=== PATIENT | female | born 1985 | race Two or more races ===

== ENCOUNTER 2024-03-25 11:12 | Emergency (ER) | payer MEDICAID, SELFPAY ==
[2024-03-25 11:28] VITALS: BP 88/56; PULSE 78; RESP 19; TEMP 37; O2SAT 95; BMI 34.4
--- NOTE | 2024-03-25 11:49 | PD.EDRME ---
Rapid Medical Screening Exam RME Arrival date/time: 03/25/24 11:12 38-year-old female presents to the emergency department with complaints of vaginal bleeding worsening for 5 days. Low blood pressure in triage. I have greeted and performed a focused initial assessment of this patient. Initial appropriate labs ordered at this time. A comprehensive ED assessment and evaluation of the patient and analysis of all test and completion of medical decision making process will be conducted by additional ED provider. Chief Complaint: Vaginal Bleeding Time Seen by Provider: 03/25/24 11:37 Vital signs: Vital Signs Temperature 98.6 F 03/25/24 11:28 Pulse Rate 78 03/25/24 11:28 Respiratory Rate 19 03/25/24 11:28 Blood Pressure 88/56 L 03/25/24 11:28 Pulse Oximetry (%) 95 03/25/24 11:28 Oxygen Delivery Method Room Air 03/25/24 11:28
[2024-03-25] MEDS: SODIUM CHLORIDE 0.9% 1000 ML 1,000 ML 999 ML IV (12:07)
--- NOTE | 2024-03-25 12:18 | PD.EDVAGBL ---
ED OB Contraction Preg RMI/HPI General Chief complaint: Vaginal Bleeding Stated complaint: VAGINAL BLEEDING/PAIN X 22 DAYS; APPT MON Time Seen by Provider: 03/25/24 11:37 Arrival date/time: 03/25/24 11:12 This is a 38-year-old female that comes in with complaints of vaginal bleeding for the last 22 days. Patient states that she usually has irregular periods. She was on control for years and it controlled her from having constant bleeding. Patient states in July she stopped taking her control regularly. And then in January she noted she did not get a menstrual period. Patient was seen by her primary provider and an ultrasound was ordered at that time. Patient was told she was not . Patient states that she started having heavy menstrual cycle 22 days ago and for the last 5 days has been bleeding more. Today patient felt faint and was brought into the emergency room. Patient has a history of right ovary removed. Patient is a 3 para 2. Patient states that she the she lost she had a ectopic years ago. Limitations: no limitations RME / HPI RME / HPI Narrative: 03/25/24 11:12 38-year-old female presents to the emergency department with complaints of vaginal bleeding worsening for 5 days. Low blood pressure in triage. I have greeted and performed a focused initial assessment of this patient. Initial appropriate labs ordered at this time. A comprehensive ED assessment and evaluation of the patient and analysis of all test and completion of medical decision making process will be conducted by additional ED provider. Related Data Previous Rx's ?Medication ?Instructions ?Recorded ibuprofen 600 mg tablet 600 mg PO Q8H PRN pain #20 tabs 03/25/24 medroxyprogesterone 10 mg tablet 10 mg PO QDAY 10 days #10 tabs 03/25/24 (Provera) Allergies Allergy/AdvReac Type Severity Reaction Status Date / Time NKA* Allergy Uncoded 03/25/24 11:14 Review of Systems Review of Systems Systems Reviewed: All systems reviewed, normal except as documented Past Medical History Past Medical History Comments PMH COMMENT: denies ED Exam General Limitations: Present no limitations General appearance: Present alert and in no apparent distress Head Head exam: Present atraumatic Eye Eye exam: Present normal appearance, PERRL and EOMI ENT ENT exam: Present normal exam, normal oropharynx and mucous membranes moist Neck Neck exam: Present normal inspection, full ROM and trachea midline Chest Chest inspection: Present normal inspection and symmetric chest wall rise Respiratory Respiratory exam: Present normal lung sounds bilaterally Cardiovascular Cardiovascular exam: Present regular rate, normal rhythm and normal heart sounds Abdominal Exam Abdominal exam: Present soft and other (abdomen soft non tender ) Extremities Exam Extremities exam: Present normal inspection and full ROM Back Exam Back exam: Present normal inspection and full ROM Neurological Exam Neurological exam: Present alert and oriented X3 Psychiatric Psychiatric exam: Present normal affect and normal mood Skin Skin exam: Present warm, dry, intact and normal color Course Quality Measures none Orders Category Date Time Status Insert IV NOW Care 03/25/24 11:46 Completed US pelvic complete Stat Exams 03/25/24 12:52 Completed CBC Stat Lab 03/25/24 12:00 Completed Comprehensive Metabolic Panel Stat Lab 03/25/24 12:00 Completed HCG,Qualitative Serum Stat Lab 03/25/24 12:00 Completed Type and Screen Stat Lab 03/25/24 12:00 Completed Urinalysis Stat Lab 03/25/24 12:24 Completed Urine Culture Stat Lab 03/25/24 12:27 Completed Ketorolac Inj [Toradol Inj] Med 03/25/24 15:33 Discontinued 30 mg IVP X1 ONE Sodium Chloride 0.9% 1000 ml [Ns] 1,000 ml Med 03/25/24 11:46 Discontinued IV 999 mls/hr Vital Signs Vital signs: Vital Signs Temperature 98.6 F 03/25/24 11:28 Pulse Rate 78 03/25/24 11:28 Respiratory Rate 19 03/25/24 11:28 Blood Pressure 88/56 L 03/25/24 11:28 Pulse Oximetry (%) 95 03/25/24 11:28 Oxygen Delivery Method Room Air 03/25/24 11:28 Vaginal Bleeding MDM Narrative MDM Narrative: This is a 38-year-old female that comes in with complaints of vaginal bleeding for the last 22 days. Patient states that she usually has irregular periods. She was on control for years and it controlled her from having constant bleeding. Patient states in July she stopped taking her control regularly. And then in January she noted she did not get a menstrual period. Patient was seen by her primary provider and an ultrasound was ordered at that time. Patient was told she was not . Patient states that she started having heavy menstrual cycle 22 days ago and for the last 5 days has been bleeding more. Today patient felt faint and was brought into the emergency room. Patient has a history of right ovary removed. Patient is a 3 para 2. Patient states that she the she lost she had a ectopic years ago. Labs for the most part unremarkable. Hemoglobin stable. Patient's LFTs are slightly elevated. UA shows no infection. Patient given a copy of us report. Patient data External records reviewed:: [facility] previous records Clinical information provided by:: patient Social determinants that could affect healthcare access:: none Patient has the following chronic illnesses:: none How is presenting disease/condition affected by chronic disease/condition?: no chronic disease Evaluation data The following diagnostics were reviewed and interpreted by me:: lab results and radiology exam(s) Lab and/or radiology exams considered but not ordered:: none Interpretation Summary: see note Medications / Prescriptions Medications or Prescriptions considered but not ordered:: none Medication administrations:: Medication Administration History Discontinued Medications Sodium Chloride (Ns) 1,000 mls @ 999 mls/hr IV .Q1H1M ONE Stop: 03/25/24 12:46 Last Infusion: 03/25/24 12:46 Dose: Infused Documented By: Admin: 03/25/24 12:07 Dose: 999 mls/hr Documented By: AM Ketorolac Tromethamine (Ketorolac Inj 30 Mg/Ml Vial) 30 mg IVP X1 ONE Stop: 03/25/24 15:34 Last Admin: 03/25/24 16:36 Dose: 30 mg Documented By: AM see mar Consultations Consultation(s) initiated? (list below): No Diagnosis Vaginal Bleeding Differential Diagnosis: missed , threatened , dysfunctional uterine bleeding, ectopic without intrauterine and vaginal bleeding Most likely diagnosis given after review of the tests above:: dysfunctional uterine bleeding Admission Indicated Admission indicated?: not indicated Admission Request Was there a request for admission?: No Disposition Plan Disposition Plan: Discharge Discharge Attestation Discharge Attestation: The patient and all family members were given an opportunity to ask questions and understood the discharge instructions. Discharge instructions specifically effects, indications for sooner follow up or return to the emergency department, and the expected course of current diagnosis. Patient condition: Stable Discharge Plan Plan Patient Disposition: HOME (Self Care) Patient condition on transfer: Stable Prescriptions/Referrals Prescriptions/Med Rec: New medroxyprogesterone [Provera] 10 mg tablet 10 mg PO QDAY 10 Days Qty: 10 0RF ibuprofen 600 mg tablet 600 mg PO Q8H PRN (Reason: pain) Qty: 20 0RF Referrals: Nisha Lilly PA-C [Primary Care Provider] - In 1 week Problem List Clinical Impression: Dysmenorrhea, Pelvic mass Patient/Caregiver Discharge Instructions Discharge Activity: activity as tolerated Education Materials: ED MENSTRUAL CRAMPING Additional Instructions: Please take medication as prescribed. Only use ibuprofen if needed. Come back to the emergency room if symptoms change or worsen. Follow-up as scheduled appointment. Please give ultrasound report to primary provider. Print Language: Brazilian Stand Alone Forms: Suellen Award Info., Patient Portal Info Letter PA/MEGA Supervising Physician PA/MEGA Supervising Physician: nathalie
[2024-03-25 12:33] LABS: Basophils # (Auto) 0.1 Thou/mm3 (0.0-0.2); Basophils % (Auto) 1 % (0-2.5); Eosinophils # (Auto) 0.1 Thou/mm3 (0.0-0.5); Eosinophils % (Auto) 1 % (0-10); Hematocrit 34.9 % (36.0-46.0); Hemoglobin 12.4 g/dL (12.0-16.0); Immature Granulocytes % (Auto) 0 % (0-0); Immature Granulocytes Auto 0.02 Thou/mm3 (0.00-0.00); Lymphocytes # (Auto) 4.1 Thou/mm3 (1.0-4.8); Lymphocytes % (Auto) 36 % (10-50); Mean Corpuscular HGB Conc 35.5 g/dl (31.0-37.0); Mean Corpuscular Hemoglobin 29.7 pg (25.0-35.0); Mean Corpuscular Volume 84 fL (80-100); Monocytes # (Auto) 0.6 Thou/mm3 (0.0-0.8); Monocytes % (Auto) 5 % (0-12); Neutrophils # (Auto) 6.3 Thou/mm3 (1.8-7.7); Neutrophils % (Auto) 56 % (37-80); Nucleated Red Blood Cell % 0 /100 WBC (0); Platelet Count 327 Thou/mm3 (140-440); RDW Standard Deviation 37.2 fL (36.4-46.3); Red Blood Count 4.17 Miln/mm3 (4.00-5.20); White Blood Count 11.2 Thou/mm3 (3.6-11.0)
[2024-03-25 12:36] LABS: Collection Type, Urine Clean Catch
[2024-03-25 12:43] LABS: Bilirubin,Urine Negative (Negative); Blood,Urine Trace (Negative); Color,Urine Yellow (Lt Yel-Yel); Glucose, Urine Negative (Negative); Ketones,Urine Negative (Negative); Leukocyte Esterase,Urine Negative (Negative); Nitrite,Urine Negative (Negative); PH,Urine 6.5 (5.0-7.0); Protein,Urine 1+ (Neg - Trace); RBC,Urine 1 /hpf (0-3); Specific Gravity,Urine 1.024 (1.001-1.035); Squamous Epithelial Cell,Urine 1 /hpf (0-5); Urobilinogen,Urine Negative mg/dL (0.0-1.0); WBC,Urine 2 /hpf (0-5)
[2024-03-25 12:47] VITALS: BP 124/71; PULSE 81; RESP 17
[2024-03-25 12:50] LABS: Alanine Aminotransferase 52 U/L (10-49); Albumin, Serum 4.4 gm/dL (3.5-5.0); Albumin/Globulin Ratio 1.5 (1.2-2.2); Alkaline Phosphatase 77 U/L (46-116); Anion Gap 7 (7-16); Aspartate Amino Transferase 49 U/L (0-34); BUN/Creatinine Ratio 11 Ratio (12-20); Bilirubin,Total 0.4 mg/dL (0.3-1.2); Blood Urea Nitrogen 8 mg/dL (9-23); Calcium 9.4 mg/dL (8.3-10.6); Calcium (Corrected) 9.4 mg/dL (8.5-10.1); Carbon Dioxide 22.6 mMol/L (20.0-31.0); Chloride 106 mMol/L (98-107); Creatinine (Component) 0.7 mg/dL (0.6-1.3); Estimated Creatinine Clearance 130.9 mL/min (>60); Globulin 2.9 gm/dL (2.3-3.5); Glucose 136 mg/dL (74-106); Osmolality,Calculated 272 (275-295); Potassium 3.7 mMol/L (3.4-5.1); Sodium 136 mMol/L (136-145); Total Protein 7.3 gm/dL (5.7-8.2); eGFR > 60 See Note
--- NOTE | 2024-03-25 12:52 | XR_ITS ---
Examination: Pelvic ultrasound, transabdominal, complete Technique: Transabdominal ultrasound of the pelvis performed using grayscale imaging Date and time of exam: March 25, 2024 1314 hours INDICATIONS: Vaginal bleeding 22 days, post and amenorrhea 4 months FINDINGS: Uterus 9.9 x 6.2 x 7.4 cm Lower uterine segment cervix mass 3.5 x 2.3 x 2.6 cm Endometrial stripe 1.3 cm Right ovary absent Left ovary 2.7 x 1.7 x 2.1 cm arterial flow, 17 mm follicular cyst Suspicious for dilated left fallopian tube 11 mm Bladder diverticulum 28 mm IMPRESSION: Recommend pelvic sonography follow-up to confirm 3.5 x 2.3 x 2.6 cm cervical mass Suspicious for left hydrosalpinx
[2024-03-25 13:00] LABS: Clarity,Urine Hazy (Clear/Hazy)
[2024-03-25 13:03] LABS: HCG,Qualitative Serum Negative
[2024-03-25 16:16] VITALS: BP 116/72; PULSE 87; RESP 16; O2SAT 98
[2024-03-25] MEDS: KETOROLAC INJ 30 MG/ML VIAL IVP (16:36)
[2024-03-25 16:42] VITALS: PULSE 83; RESP 16; O2SAT 98
== END 2024-03-25 16:44 | disposition home or self-care (01) ==
PROVIDERS: Nurse Practitioner Primary Care; Emergency Provider Emergency Medicine; PCP Physician Assistant
DX: N94.6 Dysmenorrhea, unspecified (principal); R19.00 Intra-abdominal and pelvic swelling, mass and lump, unspecified site; Z90.721 Acquired absence of ovaries, unilateral
CPT/HCPCS: 36415; 76856; 80053; 81001; 84703; 85025; 86850; 86900; 86901; 87086; 96361; 96374; 99284; J1885; J7030

== ENCOUNTER 2024-04-04 15:23 | Emergency (ER) | payer MEDICAID, SELFPAY ==
[2024-04-04 15:48] VITALS: BP 138/90; PULSE 102; RESP 18; TEMP 37.3; O2SAT 97; BMI 34.3
--- NOTE | 2024-04-04 16:01 | XR_ITS ---
Examination: Pelvic ultrasound, transabdominal, complete Technique: Transabdominal ultrasound of the pelvis performed using grayscale imaging Date and time of exam: April 04, 2024 1800 hours INDICATIONS: Vaginal bleeding beginning 6 weeks ago, removal right ovary 9 years ago FINDINGS: Uterus 9.7 x 6.0 x 6.3 cm anteverted No uterine mass or intrauterine gestation Endometrial stripe 9 mm Right ovary absent Left ovary 2.2 x 2.1 x 3.3 cm arterial flow IMPRESSION: No uterine mass or intrauterine gestation
--- NOTE | 2024-04-04 16:02 | PD.EDRME ---
Rapid Medical Screening Exam [facility] Arrival date/time: 04/04/24 1 38-year-old female presents to the emergency department complaining of vaginal bleeding and left pelvic pain that is been ongoing for greater than 1 month. Chief Complaint: Vaginal Bleeding Time Seen by Provider: 04/04/24 15:26 Vital signs: Vital Signs Temperature 99.2 F 04/04/24 15:48 Pulse Rate 102 H 04/04/24 15:48 Respiratory Rate 18 04/04/24 15:48 Blood Pressure 138/90 H 04/04/24 15:48 Pulse Oximetry (%) 97 04/04/24 15:48 Oxygen Delivery Method Room Air 04/04/24 15:48 Vital signs reviewed by provider: Yes
[2024-04-04 16:58] LABS: Collection Type, Urine Clean Catch; Squamous Epithelial Cell,Urine 0 /hpf (0-5)
[2024-04-04 17:06] LABS: Bilirubin,Urine Negative (Negative); Blood,Urine 3+ (Negative); Glucose, Urine Negative (Negative); Ketones,Urine Trace (Negative); Leukocyte Esterase,Urine Positive (Negative); Nitrite,Urine Negative (Negative); Protein,Urine 2+ (Neg - Trace); RBC,Urine 5727 /hpf (0-3); Specific Gravity,Urine 1.019 (1.001-1.035); Urobilinogen,Urine Negative mg/dL (0.0-1.0); WBC,Urine 17 /hpf (0-5)
[2024-04-04 17:07] LABS: Clarity,Urine Turbid (Clear/Hazy); Color,Urine Lt-Red (Lt Yel-Yel); Culture Indicated,Urine Yes
[2024-04-04 17:24] LABS: Basophils % (Auto) 1 % (0-2.5); Eosinophils # (Auto) 0.2 Thou/mm3 (0.0-0.5); Eosinophils % (Auto) 2 % (0-10); Hematocrit 32.3 % (36.0-46.0); Hemoglobin 10.9 g/dL (12.0-16.0); Immature Granulocytes % (Auto) 0 % (0-0); Immature Granulocytes Auto 0.03 Thou/mm3 (0.00-0.00); Lymphocytes # (Auto) 2.4 Thou/mm3 (1.0-4.8); Lymphocytes % (Auto) 32 % (10-50); Mean Corpuscular HGB Conc 33.7 g/dl (31.0-37.0); Mean Corpuscular Hemoglobin 29.5 pg (25.0-35.0); Mean Corpuscular Volume 87 fL (80-100); Monocytes # (Auto) 0.5 Thou/mm3 (0.0-0.8); Monocytes % (Auto) 7 % (0-12); Neutrophils # (Auto) 4.2 Thou/mm3 (1.8-7.7); Neutrophils % (Auto) 58 % (37-80); Nucleated Red Blood Cell % 0 /100 WBC (0); Platelet Count 361 Thou/mm3 (140-440); RDW Standard Deviation 40.2 fL (36.4-46.3); White Blood Count 7.3 Thou/mm3 (3.6-11.0)
[2024-04-04 17:33] LABS: HCG,Qualitative Serum Negative
[2024-04-04 17:35] LABS: Partial Thromboplastin Time 24.9 Seconds (22.0-36.0); Prothrombin Time 11.4 Seconds (9.0-12.2)
[2024-04-04 17:40] LABS: Alanine Aminotransferase 94 U/L (10-49); Albumin, Serum 4.6 gm/dL (3.5-5.0); Albumin/Globulin Ratio 1.6 (1.2-2.2); Alkaline Phosphatase 83 U/L (46-116); Anion Gap 8 (7-16); Aspartate Amino Transferase 102 U/L (0-34); BUN/Creatinine Ratio 16 Ratio (12-20); Bilirubin,Total 0.4 mg/dL (0.3-1.2); Blood Urea Nitrogen 11 mg/dL (9-23); Carbon Dioxide 27.9 mMol/L (20.0-31.0); Chloride 102 mMol/L (98-107); Creatinine (Component) 0.7 mg/dL (0.6-1.3); Estimated Creatinine Clearance 126.4 mL/min (>60); Globulin 2.9 gm/dL (2.3-3.5); Glucose 116 mg/dL (74-106); Osmolality,Calculated 276 (275-295); Sodium 138 mMol/L (136-145); Total Protein 7.5 gm/dL (5.7-8.2); eGFR > 60 See Note
[2024-04-04] MEDS: MEDRoxyPROGESTERone ACET 2.5 MG TABLET 10 MG PO (20:13)
--- NOTE | 2024-04-08 16:15 | PD.EDVAGBL ---
ED OB Contraction Preg RMI/HPI General Chief complaint: Vaginal Bleeding Stated complaint: vaginal bleeding > 1 month and 1 week Time Seen by Provider: 04/04/24 15:26 Source: patient Arrival date/time: 04/04/24 15:23 38-year-old female presents to the emergency department complaining of vaginal bleeding and left pelvic pain that is been ongoing for greater than 1 month. Mode of arrival: ambulatory Limitations: no limitations RME / HPI RME / HPI Narrative: 04/04/24 1 38-year-old female presents to the emergency department complaining of vaginal bleeding and left pelvic pain that is been ongoing for greater than 1 month. Related Data Previous Rx's ?Medication ?Instructions ?Recorded ibuprofen 600 mg tablet 600 mg PO Q8H PRN pain #20 tabs 03/25/24 medroxyprogesterone 10 mg tablet 10 mg PO BID 2 weeks #28 tabs 04/04/24 (Provera) Allergies Allergy/AdvReac Type Severity Reaction Status Date / Time NKA* Allergy Uncoded 03/25/24 11:14 Review of Systems Review of Systems Systems Reviewed: All systems reviewed, normal except as documented Constitutional Constitutional: Reports system reviewed and no additional complaints, except as documented, Denies body ache(s), Denies chills and Denies fever(s) Eyes Eyes: Reports system reviewed and no additional complaints, except as documented and Denies change in vision ENT Ears, Nose, Mouth, and Throat: Reports system reviewed and no additional complaints, except as documented, Denies disequilibrium, Denies dizziness, Denies sore throat and Denies vertigo Cardiovascular Cardiovascular: Reports system reviewed and no additional complaints, except as documented, Denies chest pain and Denies dyspnea Respiratory Respiratory: Reports system reviewed and no additional complaints, except as documented, Denies chest congestion, Denies cough and Denies dyspnea Gastrointestinal Gastrointestinal: Reports system reviewed and no additional complaints, except as documented, Denies abdominal pain, Denies nausea and Denies vomiting Genitourinary Genitourinary: Reports abnormal menses and Reports abnormal vaginal bleeding Musculoskeletal Musculoskeletal: Reports system reviewed and no additional complaints, except as documented, Denies abnormal gait and Denies arthralgias Integumentary/Breasts Skin/Breast: Reports system reviewed and no additional complaints, except as documented, Denies erythema, Denies rash and Denies wounds Neurologic Neurologic: Reports system reviewed and no additional complaints, except as documented, Denies abnormal gait, Denies disequilibrium, Denies dizziness and Denies vertigo Past Medical History Past Medical History NEUROLOGIC: Negative Neurological Disorders CARDIAC: Positive Hypertension and Hypotension; Negative Congestive Heart Failure RESPIRATORY: Negative Chronic Obstructive Pulmonary Disease (COPD) GASTROINTESTINAL: Negative Gastrointestinal Disorders (pt thinks she may have colitis) GENITOURINARY: Negative Genitourinary Disorders or Renal Disease REPRODUCTIVE: Positive Previous Pregnancies (3 pregnancies and 2 live biths. x1 ectopic) MUSCULOSKELETAL: Negative Musculoskeletal Disorders ENDOCRINE: Negative Endocrine Disorders, Diabetes Mellitus Type 1 or Diabetes Mellitus Type 2 (pre diabetic) HEMATOLOGIC: Negative Blood Disorders Surgical History SURGICAL: Negative Cardiac Surgery, Endocrine Surgery or Ear Surgery Social History SMOKING STATUS: Never smoker ED Exam General Limitations: Present no limitations General appearance: Present alert and in no apparent distress Head Head exam: Present atraumatic Eye Eye exam: Present normal appearance, PERRL and EOMI ENT ENT exam: Present normal exam, normal oropharynx and mucous membranes moist Neck Neck exam: Present normal inspection, full ROM and trachea midline Chest Chest inspection: Present normal inspection and symmetric chest wall rise Respiratory Respiratory exam: Present normal lung sounds bilaterally Cardiovascular Cardiovascular exam: Present regular rate, normal rhythm and normal heart sounds Abdominal Exam Abdominal exam: Present soft and normal bowel sounds Extremities Exam Extremities exam: Present normal inspection and full ROM Back Exam Back exam: Present normal inspection and full ROM Neurological Exam Neurological exam: Present alert, oriented X3 and CN II-XII intact Psychiatric Psychiatric exam: Present normal affect and normal mood Skin Skin exam: Present warm, dry, intact and normal color Course Quality Measures none Orders Category Date Time Status US pelvic complete Stat Exams 04/04/24 16:01 Completed CBC Stat Lab 04/04/24 16:45 Completed CMP [Comprehensive Metabolic Panel] Stat Lab 04/04/24 16:45 Completed HCG,Qualitative Serum Stat Lab 04/04/24 16:45 Completed PT [Prothrombin Time with INR] Stat Lab 04/04/24 16:45 Completed PTT [Partial Thromboplastin Time] Stat Lab 04/04/24 16:45 Completed Urinalysis, C/S if Indicated Stat Lab 04/04/24 16:49 Completed Urine Culture Stat Lab 04/04/24 16:49 Completed MEDRoxyPROGESTERone ACET [Provera] Med 04/04/24 19:43 Discontinued 10 mg PO X1 ONE Vital Signs Vital signs: Vital Signs Temperature 99.2 F 04/04/24 15:48 Pulse Rate 102 H 04/04/24 15:48 Respiratory Rate 18 04/04/24 15:48 Blood Pressure 138/90 H 04/04/24 15:48 Pulse Oximetry (%) 97 04/04/24 15:48 Oxygen Delivery Method Room Air 04/04/24 15:48 97% RA WNL. Vaginal Bleeding MDM Narrative MDM Narrative: 38-year-old female presents to the emergency department complaining of vaginal bleeding and left pelvic pain that is been ongoing for greater than 1 month. Patient appears non toxic and hemodynamically stable. CBC no leukocytosis, Hgb 10.9 trending down. CMP and U/A unremarkable. US pelvis no intrauterine mass or intrauterine gestation. Dr. Olea consulted recommended repeat Medroxyprogesterone treatment but increase to 10mg BID and have close f/u in [facility] office on . Patient given dose and adress of OBGYN Dr. Olea and instructed to see him in hes office and return to ER for any worsening symptoms. Patient data External records reviewed:: [facility] previous records Clinical information provided by:: patient Social determinants that could affect healthcare access:: none Patient has the following chronic illnesses:: see chart How is presenting disease/condition affected by chronic disease/condition?: uneffected by Evaluation data The following diagnostics were reviewed and interpreted by me:: lab results and radiology exam(s) Lab and/or radiology exams considered but not ordered:: ordered Interpretation Summary: interpreted by me Medications / Prescriptions Medications or Prescriptions considered but not ordered:: ordered Medication administrations:: Medication Administration History Discontinued Medications Medroxyprogesterone Acetate (Medroxyprogesterone Acet 2.5 Mg Tablet) 10 mg PO X1 ONE Stop: 04/04/24 19:44 Last Admin: 04/04/24 20:13 Dose: 10 mg Documented By: given Consultations Consultation(s) initiated? (list below): Yes Consultation #1 (Physician, Specialty, Details): dr. olea Diagnosis Vaginal Bleeding Differential Diagnosis: dysfunctional uterine bleeding, menometrorrhagia and vaginal bleeding Most likely diagnosis given after review of the tests above:: vaginal bleeding Admission Indicated Admission indicated?: not indicated Admission Request Was there a request for admission?: No Disposition Plan Disposition Plan: Discharge Discharge Attestation Discharge Attestation: The patient and all family members were given an opportunity to ask questions and understood the discharge instructions. Discharge instructions specifically effects, indications for sooner follow up or return to the emergency department, and the expected course of current diagnosis. Patient condition: Stable Discharge Plan Plan Patient Disposition: HOME (Self Care) Disposition Comment: Stable Prescriptions/Referrals Prescriptions/Med Rec: New medroxyprogesterone [Provera] 10 mg tablet 10 mg PO BID 14 Days Qty: 28 0RF No Action ibuprofen 600 mg tablet 600 mg PO Q8H PRN (Reason: pain) Qty: 20 0RF Referrals: Nisha Lilly PA-C [Primary Care Provider] - In 1 week Bijan Olea MD [Physician] - 04/06/24 9:00 am Problem List Clinical Impression: Abnormal vaginal bleeding Patient/Caregiver Discharge Instructions Discharge Activity: activity as tolerated Education Materials: Understanding Uterine Bleeding Additional Instructions: Take medication as prescribed. Follow-up with GENERAL ACCOUNTANT Dr. Olea on Thursday in his office at [facility] on [address] Address is provided above. Return to the emergency department for any worsening symptoms or as needed. Print Language: Polish Stand Alone Forms: Suellen Award Info., Patient Portal Info Letter PA/MEGA Supervising Physician MANDY/MEGA Supervising Physician: Dr. Diggs
== END 2024-04-04 20:15 | disposition home or self-care (01) ==
PROVIDERS: Emergency Provider Emergency Medicine; PCP Physician Assistant
DX: N93.9 Abnormal uterine and vaginal bleeding, unspecified (principal)
CPT/HCPCS: 36415; 76856; 80053; 81001; 84703; 85025; 85610; 85730; 87086; 99284; A9270

== ENCOUNTER → 2024-05-18 | Outpatient (CLI) | payer MEDICAID, SELFPAY ==
[2024-05-18 14:56] LABS: HCG Qualitative,Urine Negative
--- NOTE | 2024-05-18 16:00 | XR_ITS ---
Examination: MRI pelvis with intravenous contrast. MRI pelvis without intravenous contrast. Date and time of exam: May 18, 2024 1740 hrs. Indications: History vaginal bleeding beginning one month ago, 3.5 x 2.3 x 2.6 cm cervical mass on pelvic sonogram March 25, 2024 Technique: Multiple axial, sagittal and coronal sections of the pelvis obtained. Transverse images, TR 6020, TE 107. T1 weighted transverse images, TR 582, TE 9.5. T2-weighted sagittal images, TR 4000, TE 105. T2-weighted sagittal images, TR 4000, TE 5. Coronal images, TR 4210, TE 107. Axial and coronal images are obtained post 19 cc intravenous injection, gadolinium. Findings: Retroverted uterus, 10.2 x 5.9 x 4.8 cm No enhancing uterine or cervical mass is noted on this study Endometrial stripe is not thickened Left ovary 2.2 x 2.8 cm, 20 mm left ovarian cyst No free fluid in the pelvis No pelvic lymphadenopathy Impression: No enhancing cervical mass is depicted on this study Recommend this patient return for repeat transvaginal pelvic sonography with the radiologist in attendance
== END | disposition home or self-care (01) ==
PROVIDERS: Referring Provider Physician Assistant; Visit Provider Physician Assistant
DX: R19.00 Intra-abdominal and pelvic swelling, mass and lump, unspecified site (principal); Z32.00 Encounter for pregnancy test, result unknown
CPT/HCPCS: 72197; 81025; A9579

== ENCOUNTER 2024-09-20 09:43 | Emergency (ER) | payer MEDICAID, SELFPAY ==
[2024-09-20 09:44] VITALS: BMI 32.3
[2024-09-20 10:00] VITALS: BP 161/80; PULSE 77; RESP 18; TEMP 36.6; O2SAT 96
--- NOTE | 2024-09-20 10:17 | EDRME_ITS ---
Rapid Medical Screening Exam RME Arrival date/time: 09/20/24 09:43 This is a 38-year-old female that comes in with complaints of nausea, vomiting, and abdominal pain that started this morning. patient denies past medical history. I have greeted and performed a focused initial assessment of this patient. Init ial appropriate labs ordered at this time. A comprehensive ED assessment and evaluation of the patient and analysis of all test and completion of medical decision making process will be conducted by additional ED provider. Chief Complaint: Abdominal Pain Time Seen by Provider: 09/20/24 09:51 Vital signs: Vital Signs Temperature 97.9 F 09/20/24 10:00 Pulse Rate 77 09/20/24 10:00 Respiratory Rate 18 09/20/24 10:00 Blood Pressure 161/80 H 09/20/24 10:00 Pulse Oximetry (%) 96 09/20/24 10:00 Oxygen Delivery Method Room Air 09/20/24 10:00
[2024-09-20] MEDS: ONDANSETRON ODT 4 MG TABRAP PO (10:26)
[2024-09-20 10:38] LABS: Basophils % (Auto) 0 % (0-2.5); Eosinophils % (Auto) 0 % (0-10); Hemoglobin 13.3 g/dL (12.0-16.0); Immature Granulocytes % (Auto) 0 % (0-0); Immature Granulocytes Auto 0.04 Thou/mm3 (0.00-0.00); Lymphocytes # (Auto) 1.6 Thou/mm3 (1.0-4.8); Lymphocytes % (Auto) 14 % (10-50); Mean Corpuscular HGB Conc 34.1 g/dl (31.0-37.0); Mean Corpuscular Hemoglobin 26.9 pg (25.0-35.0); Mean Corpuscular Volume 79 fL (80-100); Monocytes # (Auto) 0.3 Thou/mm3 (0.0-0.8); Monocytes % (Auto) 2 % (0-12); Neutrophils # (Auto) 9.4 Thou/mm3 (1.8-7.7); Neutrophils % (Auto) 83 % (37-80); Nucleated Red Blood Cell % 0 /100 WBC (0); Platelet Count 350 Thou/mm3 (140-440); Red Blood Count 4.94 Miln/mm3 (4.00-5.20); White Blood Count 11.4 Thou/mm3 (3.6-11.0)
[2024-09-20 11:11] LABS: Collection Type, Urine Voided
[2024-09-20 11:15] LABS: Alanine Aminotransferase 31 U/L (10-49); Albumin, Serum 4.6 gm/dL (3.5-5.0); Albumin/Globulin Ratio 1.5 (1.2-2.2); Alkaline Phosphatase 84 U/L (46-116); Anion Gap 11 (7-16); Aspartate Amino Transferase 34 U/L (0-34); BUN/Creatinine Ratio 10 Ratio (12-20); Bilirubin,Total 0.5 mg/dL (0.3-1.2); Blood Urea Nitrogen 7 mg/dL (9-23); Calcium 8.9 mg/dL (8.3-10.6); Calcium (Corrected) 8.9 mg/dL (8.5-10.1); Carbon Dioxide 21.7 mMol/L (20.0-31.0); Chloride 104 mMol/L (98-107); Creatinine (Component) 0.7 mg/dL (0.6-1.3); Estimated Creatinine Clearance 122.4 mL/min (>60); Glucose 188 mg/dL (74-106); Lipase 32 U/L (12-53); Osmolality,Calculated 276 (275-295); Potassium 3.6 mMol/L (3.4-5.1); Sodium 137 mMol/L (136-145); Total Protein 7.6 gm/dL (5.7-8.2); eGFR > 60 See Note
[2024-09-20 11:17] LABS: HCG Qualitative,Urine Negative
[2024-09-20 11:23] LABS: Bacteria,Urine Rare; Bilirubin,Urine Negative (Negative); Blood,Urine 1+ (Negative); Clarity,Urine Clear (Clear/Hazy); Color,Urine Lt-Yellow (Lt Yel-Yel); Culture Indicated,Urine Not Indicated; Glucose, Urine 1+ (Negative); Ketones,Urine 2+ (Negative); Leukocyte Esterase,Urine Negative (Negative); Nitrite,Urine Negative (Negative); PH,Urine 6.5 (5.0-7.0); Protein,Urine Negative (Neg - Trace); RBC,Urine 4 /hpf (0-3); Specific Gravity,Urine 1.021 (1.001-1.035); Squamous Epithelial Cell,Urine 2 /hpf (0-5); Urobilinogen,Urine Negative mg/dL (0.0-1.0); WBC,Urine 1 /hpf (0-5)
[2024-09-20] MEDS: KETOROLAC INJ 60 MG/2 ML VIAL IM (14:13)
[2024-09-20 15:06] VITALS: BP 157/96; PULSE 88; RESP 20; TEMP 36.8; O2SAT 97
--- NOTE | 2024-09-20 15:23 | EDNOTE_ITS ---
<Statement entered by Nargis Javier MD - 09/21/24 09:01> As co-signing physician, I was present and available for consult prn. I concur with the plan and care as documented by the midlevel provider. ED General RME/HPI General Chief complaint: Abdominal Pain Stated complaint: LLQ ABD PAIN THIS MORNING/VOMITING Time Seen by Provider: 09/20/24 09:51 Arrival date/time: 09/20/24 09:43 CC: Nausea vomiting low abdominal pain onset abruptly at 530 this morning. No prior history of similar events no family members are ill with similar symptoms denies fever chest pain shortness of breath. Mild back pain Toradol injection given in the waiting room gave her some relief but not significant. Currently the patient is smiling has had no nausea or vomiting for the past 2 hours. RME / HPI RME / HPI narrative: 09/20/24 09:43 This is a 38-year-old female that comes in with complaints of nausea, vomiting, and abdominal pain that started this morning. patient denies past medical history. I have greeted and performed a focused initial assessment of this patient. Initial appropriate labs ordered at this time. A comprehensive ED assessment and evaluation of the patient and analysis of all test and completion of medical decision making process will be conducted by additional ED provider. Related Data Previous Rx's ?Medication ?Instructions ?Recorded ibuprofen 600 mg tablet 600 mg PO Q8H PRN pain #20 t abs 03/25/24 meloxicam 7.5 mg tablet 7.5 mg PO QDAY #10 tabs 09/08 08/02 ondansetron 4 mg disintegrating 4 mg PO Q8H #10 tabs 0 09/20/24 tablet Allergies Allergy/AdvReac Type Severity Reaction Status Date / Time NKA* Allergy Uncoded 03/25/24 11:14 Review of Systems Review of Systems Narrative Review of Systems: GEN: No fever, no chills, no weight loss EYES: No discharge, no visual changes, no pain HEENT: No ear pain, no congestion, no sore throat PULM: No shortness of breath, no cough, no congestion CV: No chest pain, no dyspnea on exertion, no palpitations GI: + nausea, + vomiting, no diarrhea, + pain, no constipation : No frequency, no urgency, no dysuria MUSC/SKEL: No joint pain, no back pain SKIN: No rash PSYCH: No hallucinations, no depression HEME/LYMPH: No easy bleeding or bruising tendencies NEURO: No weakness, no headache Past Medical History Past Medical History NEUROLOGIC: Negative Neurological Disorders CARDIAC: Positive Hypertension and Hypotension; Negative Congestive Heart Failure RESPIRATORY: Negative Chronic Obstructive Pulmonary Disease (COPD) GASTROINTESTINAL: Negative Gastrointestinal Disorders (pt thinks she may have colitis) GENITOURINARY: Negative Genitourinary Disorders or Renal Disease REPRODUCTIVE: Positive Previous Pregnancies (3 pregnancies and 2 live biths. x1 ectopic) MUSCULOSKELETAL: Negative Musculoskeletal Disorders ENDOCRINE: Negative Endocrine Disorders, Diabetes Mellitus Type 1 or Diabetes Mellitus Type 2 (pre diabetic) HEMATOLOGIC: Negative Blood Disorders Surgical History SURGICAL: Negative Cardiac Surgery, Endocrine Surgery or Ear Surgery Social History SMOKING STATUS: Never smoker ED Exam Narrative Physical exam: [General: Obese not in any acute distress Head normocephalic HEENT: Within acceptable limits Neck is supple nontender Chest equal chest rise nontender to palpation Respiratory: Clear to auscultation no wheezes crackles or rubs CV: Rate rhythm is regular no murmurs rubs or clicks Abdomen is distended secondary to body habitus soft mild pannus tenderness, no reflexive guarding no rebound tenderness. no masses positive bowel sounds all 4 quadrants Back: No CVA tenderness no spinous process tenderness from cervical spine thoracic and lumbar spine Skin: Intact no petechiae rash induration ulceration or crepitus Extremities: Moving all extremity against resistance cap refill less than 2 seconds neurosensory intact Neuro: Awake alert oriented x3 Glascow coma 15 no focal deficits] Course Quality Measures none Orders Category Date Time Status Bedside COVID-19 Antigen Test NOW Care 09/20/24 11:53 Completed Bedside Influenza A&B Antigen Test NOW Care 09/20/24 11:53 Completed CBC Stat Lab 09/20/24 10:27 Completed Comprehensive Metabolic Panel Stat Lab 09/20/24 10:27 Completed HCG Qualitative,Urine Stat Lab 09/20/24 10:56 Completed Lipase Stat Lab 09/20/24 10:27 Completed Urinalysis, C/S if Indicated Stat Lab 09/20/24 10:56 Completed Ketorolac Inj [Toradol Inj] Med 09/20/24 13:47 Discontinued 60 mg IM X1 ONE Ondansetron Odt [Zofran Odt] Med 09/20/24 10:16 Discontinued 4 mg PO X1 ONE Vital Signs Vital signs: Vital Signs Temperature 97.9 F 09/20/24 10:00 Pulse Rate 77 09/20/24 10:00 Respiratory Rate 18 09/20/24 10:00 Blood Pressure 161/80 H 09/20/24 10:00 Pulse Oximetry (%) 96 09/20/24 10:00 Oxygen Delivery Method Room Air 09/20/24 10:00 Discharge Plan Plan Patient Disposition: HOME (Self Care) Patient condition on transfer: Stable Prescriptions/Referrals Prescriptions/Med Rec: New ondansetron 4 mg tablet,disintegrating 4 mg PO Q8H Qty: 10 0RF meloxicam 7.5 mg tablet 7.5 mg PO QDAY Qty: 10 0RF No Action ibuprofen 600 mg tablet 600 mg PO Q8H PRN (Reason: pain) Qty: 20 0RF Referrals: No Primary/Family,Physician [Primary Care Provider] - In 1 week Problem List Clinical Impression: Abdominal pain, Nausea & vomiting Patient/Caregiver Discharge Instructions Education Materials: Abdominal Pain, ED Vomiting and Diarrhea ... Print Language: [place] Stand Alone Forms: [facility]ellen Award Info., Patient Portal Info Letter MDM Clinical Information Provided by: none Medical Records reviewed None Labs/Rad/Tests considered, not ordered None Labs Labs: Interpreted by me Lab(s) Interpretation(s): CBC shows leukocytosis of 11.4 no anemia thrombocytopenia CMP shows no significant electrolyte imbalances other than a glucose of 188 no transaminitis or T. bili elevation Urine there is 1+ glucose 4+ RBCs. Medication Administration(s) Medication Administration History Discontinued Medications Ketorolac Tromethamine (Ketorolac Inj 60 Mg/2 Ml Vial) 60 mg IM X1 ONE Stop: 09/20/24 13:48 Last Admin: 09/20/24 14:13 Dose: 60 mg Documented By: SAVNANA Ondansetron HCl (Ondansetron Odt 4 Mg Tabrap) 4 mg PO X1 ONE; Protocol Stop: 09/20/24 10:17 Last Admin: 09/20/24 10:26 Dose: 4 mg Documented By: QUINTEN
== END 2024-09-20 15:57 | disposition home or self-care (01) ==
PROVIDERS: Nurse Practitioner Family; Emergency Provider Emergency Medicine
DX: R10.32 Left lower quadrant pain (principal); R11.2 Nausea with vomiting, unspecified
CPT/HCPCS: 36415; 80053; 81001; 81025; 83690; 85025; 87400; 87811; 96372; 99283; J1885; Q0162

== ENCOUNTER → 2025-05-01 | Outpatient (CLI) | payer MEDICAID, SELFPAY ==
--- NOTE | 2025-05-01 14:15 | XR_ITS ---
Examination: Pelvic ultrasound, transabdominal, complete Technique: Transabdominal ultrasound of the pelvis performed using grayscale imaging Date and time of exam: May 04, 2025, 1800 hours, comparison April 04, 2024 INDICATIONS: Irregular heavy menses and pelvic pain beginning 10 years ago FINDINGS: Uterus 8.5 cm endometrial stripe 1.0 cm No uterine mass or intrauterine gestation Absent right ovary Left ovary 5.3 cm arterial flow, 4.3 x 2.4 x 2.8 cm simple cyst Solid left adnexal vascular mass 2.2 x 1.6 x 1.7 cm IMPRESSION: Solid left adnexal mass with vascularity 2.2 x 1.6 x 1.7 cm, differential including ovarian tumor Recommend MRI pelvis follow-up pre and postcontrast
== END | disposition home or self-care (01) ==
LOC: CDIM 14:00
PROVIDERS: PCP Family Medicine; Referring Provider Obstetrics & Gynecology; Visit Provider Obstetrics & Gynecology
DX: R19.00 Intra-abdominal and pelvic swelling, mass and lump, unspecified site (principal)
CPT/HCPCS: 76856